=== PATIENT | female | born 1955 | race Caucasian/White ===

== ENCOUNTER 2020-12-31 12:20 | Observation (INO) | payer OTHER ==
[~2020-12-31] VITALS: Ht 167.6 cm; Wt 78.5 kg
[~2020-12-31 12:20] MED LIST: ACIDOPHILUS1 EAC3 PO; AMITRIPTYLINE H75 MG PO; ASPIR 8181 MG PO; ATARAX PO; AZO CRANBERRY1 EAC1 PO; BIOTIN PO; CHROMIUM PO; COZAAR25 MG PO; DRY EYE RELIEF15 ML EYEBOTH; ESTRADIOL CREAM PR; FLONASE ALLER15.8 ML; GLIPIZIDE XL2.5 MG PO; GLYDO11 ML UR; IMODIUM CAP 2 MG2 MG PO; JANUMET XR 50-1 EACH PO; K-TAB ER20 MEQ PO; KEFLEX500 MG PO; KLONOPIN0.5 MG PO; LACTULOSE10 GM/15 M PO; LASIX20 MG PO; LINZESS290 MCG PO; LOVASTATIN20 MG PO; LYRICA200 MG PO; MELOXICAM15 MG PO; NITROFURANTOIN100 MG PO; NITROSTAT 0.40.4 MG SL; PEPCID40 MG PO; PREVACID30 MG PO; PYRIDIUM200 MG PO; ROPINIROLE HCL1 MG PO; SINGULAIR10 MG PO; TOPROL XL25 MG PO; TROSPIUM CHLORI20 MG PO; TYLENOL 8 HOUR650 MG PO; VENTOLIN HFA 66.7 GM INH; VITAMIN C500 M4 PO; VITAMIN D21250 MCG PO; ZOFRAN ODT 4 MG4 MG PO; ZYRTEC10 MG PO
[2020-12-31 15:26] LABS: HEMOGLOBIN 13.9 gm/dl (12.3-15.3); RED BLOOD COUNT 4.2 M/UL (4.00-5.10)
[2020-12-31 15:52] LABS: BUN/CREATININE RATIO 12 (0-10)
[2020-12-31] MEDS ORDERED: KETOTIFEN FUMARA5 ML EYEBOTH (20:23)
[2020-12-31] MEDS ORDERED: ARICEPT5 MG PO (20:24)
[2020-12-31] MEDS ORDERED: DEXILANT60 MG PO (20:24)
[2020-12-31] MEDS ORDERED: AZELASTINE137 MCG/0. (20:34)
[2020-12-31] MEDS ORDERED: SOTALOL80 MG PO (20:35)
[2020-12-31] MEDS ORDERED: CRESTOR20 MG PO (20:35)
[2020-12-31] MEDS ORDERED: VITAMIN D325 MCG PO (20:36)
[2020-12-31] MEDS ORDERED: ELIQUIS 5 MG TAB5 MG PO (20:36)
[2020-12-31] MEDS ORDERED: FERROUS SULFAT325 MG PO (20:37)
[2020-12-31] MEDS ORDERED: HYDROXYZINE HCL25 MG PO (20:42)
[2021-01-01 06:39] LABS: HEMOGLOBIN 12.1 gm/dl (12.3-15.3); WHITE BLOOD COUNT 6.4 K/UL (4.5-11.0)
[2021-01-01 07:04] LABS: RED BLOOD COUNT 3.73 M/UL (4.00-5.10)
[2021-01-02] MEDS ORDERED: INVANZ 1 GM VIAL1 GM IV (13:21)
== END 2021-01-02 15:43 | disposition home health service (06) ==
LOC: ER1 12:20 → CDU 18:39 → M/S 18:39
PROVIDERS: Emergency Medicine; ADMIT Internal Medicine
DX: N10 Acute pyelonephritis (principal); B96.1 Klebsiella pneumoniae [K. pneumoniae] as the cause of diseases classified elsewhere; N17.9 Acute kidney failure, unspecified; I12.9 Hypertensive chronic kidney disease with stage 1 through stage 4 chronic kidney disease, or unspecified chronic kidney disease; E11.22 Type 2 diabetes mellitus with diabetic chronic kidney disease; N18.2 Chronic kidney disease, stage 2 (mild); F03.90 Unspecified dementia, unspecified severity, without behavioral disturbance, psychotic disturbance, mood disturbance, and anxiety; G25.81 Restless legs syndrome; D50.9 Iron deficiency anemia, unspecified; I48.91 Unspecified atrial fibrillation; J30.9 Allergic rhinitis, unspecified; E78.5 Hyperlipidemia, unspecified; E87.1 Hypo-osmolality and hyponatremia; R94.31 Abnormal electrocardiogram [ECG] [EKG]; E11.649 Type 2 diabetes mellitus with hypoglycemia without coma; Z20.822 Contact with and (suspected) exposure to COVID-19; Z87.440 Personal history of urinary (tract) infections; Z79.01 Long term (current) use of anticoagulants; Z79.899 Other long term (current) drug therapy; Z79.84 Long term (current) use of oral hypoglycemic drugs; Z79.82 Long term (current) use of aspirin; Z79.1 Long term (current) use of non-steroidal anti-inflammatories (NSAID)
CPT/HCPCS: 71045; 80053; 81001; 82550; 82553; 82962; 83690; 83735; 83874; 84100; 84484; 85025; 85027; 85610; 85730; 87077; 87086; 87186; 93005; 96365; 96366; 96372; 96375; 96376; 99285; G0378; J1335; J2185; J2270; J2405; J2543; J2550; U0002

== ENCOUNTER → 2021-01-03 | Outpatient (CLI) | payer OTHER ==
[~2021-01-03] MED LIST changes: +ARICEPT5 MG PO; +AZELASTINE137 MCG/0.; +CRESTOR20 MG PO; +DEXILANT60 MG PO; +ELIQUIS 5 MG TAB5 MG PO; +FERROUS SULFAT325 MG PO; +HYDROXYZINE HCL25 MG PO; +INVANZ 1 GM VIAL1 GM IV; +KETOTIFEN FUMARA5 ML EYEBOTH; +SOTALOL80 MG PO; +VITAMIN D325 MCG PO
== END | disposition home or self-care (01) ==
LOC: OPSV 07:00
DX: N12 Tubulo-interstitial nephritis, not specified as acute or chronic (principal); N39.0 Urinary tract infection, site not specified

== ENCOUNTER → 2021-01-16 | Outpatient (CLI) | payer OTHER ==
[2021-01-16 14:33] LABS: BUN/CREATININE RATIO 13 (0-10)
== END ==
LOC: OPSV 12:00
PROVIDERS: Internal Medicine Infectious Disease
DX: N30.90 Cystitis, unspecified without hematuria (principal)
CPT/HCPCS: 36415; 80053

== ENCOUNTER → 2021-02-13 | Outpatient (CLI) | payer OTHER | LOC: OPSV 13:00 | DX: N30.90 Cystitis, unspecified without hematuria (principal); Z90.710 Acquired absence of both cervix and uterus | CPT/HCPCS: G0463 ==